=== PATIENT | female | born 1975 | race Caucasian/White ===

== ENCOUNTER 2024-09-15 04:06 | Day surgery (SDC) | payer OTHER ==
[2024-09-11 09:38] VITALS: BMI 24.5
[2024-09-15] MEDS ORDERED: DEXAMETHASONE SOD PHOSPHATE 4 MG/1 ML VIAL ONE (08:49)
[2024-09-15] MEDS ORDERED: MIDAZOLAM HCL 2 MG/2 ML SINGLE DOSE VIAL ONE (08:49)
[2024-09-15] MEDS ORDERED: ONDANSETRON 4 MG/2 ML VIAL ONE (08:49)
[2024-09-15] MEDS ORDERED: PROPOFOL 20 ML ONE (08:49)
[2024-09-15] MEDS ORDERED: oxyCODONE HCL 5 MG TABLET PO PRN (09:02)
[2024-09-15] MEDS ORDERED: ONDANSETRON 4 MG/2 ML VIAL IVPUSH PRN (09:02)
[2024-09-15] MEDS ORDERED: LIDOCAINE HCL 1%, 10 MG/ML (20ML VIAL) ONE (09:12)
[2024-09-15] MEDS ORDERED: ISOSULFAN BLUE 50 MG/5 ML VIAL SQ ONE (09:12)
[2024-09-15] MEDS ORDERED: LACTATED RINGERS SOLUTION 1,000 ML IV SCH (09:15)
[2024-09-15] MEDS: ceFAZolin SODIUM 1 GM VIAL IVPB ONE ×2 (10:18)
[2024-09-15] MEDS ORDERED: ceFAZolin SODIUM 1 GM VIAL ONE ×2 (10:20)
[2024-09-15] MEDS: LIDOCAINE HCL 1%, 10 MG/ML (20ML VIAL) NR ONE ×3 (10:31)
[2024-09-15] MEDS ORDERED: LIDOCAINE HCL/PF 2% SDV 5ML VIAL ONE (10:43)
[2024-09-15] MEDS ORDERED: ACETAMINOPHEN INJECTION 100 ML ONE (11:13)
[2024-09-15] MEDS ORDERED: oxyCODONE HCL 5 MG TABLET ONE (12:34)
[2024-09-15] MEDS: oxyCODONE HCL 5 MG TABLET PO PRN (12:36)
[2024-09-15 16:25] VITALS: BP 123/67; PULSE 72; RESP 18; TEMP 97.1
== END 2024-09-15 13:15 | disposition home or self-care (01) ==
LOC: JASU-SURG 04:06
PROVIDERS: ATTEND Surgery
PROC: 0HBT0ZZ Excision of Right Breast, Open Approach (ICD-10-PCS; principal; 2024-09-15 09:00)
PROC: 0H0T0ZZ Alteration of Right Breast, Open Approach (ICD-10-PCS; 2024-09-15 09:00)
DX: C50.911 Malignant neoplasm of unspecified site of right female breast (principal)
CPT/HCPCS: 78195-TC; 81025; 88307-TC; 88341-TC; 88342-TC; 94760; A9541; J0131